=== PATIENT | female | born 1980 | race African-American/Black ===

== ENCOUNTER 2018-09-02 08:20 | Emergency (ER) | payer BC, MEDICAID ==
[~2018-09-02] VITALS: Ht 165.1 cm; Wt 110.0 kg
[2018-09-02] MEDS ORDERED: MORPHINE SULFATE 4 MG/ML CPJ (NOT FOR IM USE) IV STA (11:30)
[2018-09-02] MEDS ORDERED: ONDANSETRON HCL 4MG/2ML INJ IV STA (11:30)
[2018-09-02] MEDS ORDERED: SODIUM CHLORIDE 0.9% 1,000 ML IV ONE (11:30)
[2018-09-02 12:02] LABS: CLARITY URINE CLOUDY (CLEAR); COLOR URINE YELLOW (YELLOW); KETONES URINE 2+ (NEGATIVE); LEUKOCYTE ESTERASE URINE 2+ (NEGATIVE); NITRITE URINE NEGATIVE (NEGATIVE); OCCULT BLOOD URINE 3+ (NEGATIVE); PROTEIN URINE 1+ (NEGATIVE); SPECIFIC GRAVITY URINE 1.028 (1.005-1.030); UROBILINOGEN URINE 0.2 E.U./dL (0.2-1.0)
[2018-09-02 12:03] LABS: BASOPHILS % 0.5 % (0.0-2.0); EOSINOPHILS % 0.4 % (0.0-5.0); HEMATOCRIT. 42.1 % (36.0-48.0); LYMPHOCYTES % 9.6 % (20.0-50.0); MEAN CORPUSCULAR HEMOGLOBIN 28.2 pg (28.0-32.0); MEAN CORPUSCULAR VOLUME 84.5 fL (81.0-99.0); MEAN PLATELET VOLUME 9.9 fl (7.4-10.4); MONOCYTES % 5.5 % (2.0-8.0); PLATELET 287 x1000/uL (130-400); RED BLOOD CELL COUNT 4.98 mill/uL (4.2-5.4); RED CELL DISTRIBUTION WIDTH 12.9 % (11.6-14.6)
[2018-09-02 12:09] LABS: CHLORIDE 101 mEq/L (98-107)
[2018-09-02 12:10] LABS: INR 1.1; PROTHROMBIN TIME 11.4 sec (9.6-11.0)
[2018-09-02 12:12] LABS: HCG SCREEN NEGATIVE
[2018-09-02] MEDS ORDERED: CEFTRIAXONE 1 G PREMIX 50 ML IV ONE (12:30)
[2018-09-02 13:07] LABS: BG BASE EXCESS -2.9 mmol/L (-2.0-2.0); BG CARBOXYHEMOGLOBIN 0.3 % (0.5-1.5); BG DEOXYHEMOGLOBIN 4.3 % (0.0-5.0); BG FRACTION INSPIRED OXYGEN 21; BG METHEMOGLOBIN 0.3 % (0.0-1.5); BG OXYGEN SATURATION 95.7 % (92.0-98.5); BG OXYHEMOGLOBIN 95.1 % (94.0-97.0); BG PCO2 34.4 mmHg (35.0-45.0); BG PH 7.404 (7.350-7.450); BG PO2 81.4 mmHg (75.0-100.0); BG SAMPLE SITE RIGHT RADIAL; BG TOTAL HEMOGLOBIN 14.1 g/dL (12.0-18.0); BG VENT MODE ROOM AIR
[2018-09-02] MEDS ORDERED: IOHEXOL-300 100 ML BOTTLE ONE (13:34)
[2018-09-02] MEDS ORDERED: KETOROLAC 30MG/ML VIAL IV ONE (14:00)
[2018-09-02 15:35] VITALS: BP 122/85
== END 2018-09-02 15:52 | disposition home or self-care (01) ==
LOC: ER 08:20 → CANBEDREQ 20:07
DX: N10 Acute pyelonephritis (principal); E11.65 Type 2 diabetes mellitus with hyperglycemia; J45.909 Unspecified asthma, uncomplicated
CPT/HCPCS: 36415; 36600; 74177; 80053; 81003; 82010; 82375; 82805; 82962; 83605; 83690; 84703; 85025; 85610; 87040; 87077; 87086; 87186; 96361; 96365; 96375; 99284; J0696; J1885; J2270; J2405; J7030; Q9967